=== PATIENT | male | born 1975 | race American Indian/Alaskan Native ===

== ENCOUNTER 2017-02-22 11:52 | Emergency (ER) | payer BC ==
[2017-02-22 12:15] VITALS: RESP 20
--- NOTE | 2017-02-22 12:59 | RAD ---
PROCEDURE: Left Knee Radiographs. HISTORY: Pain. COMPARISON: None. FINDINGS: BONES: No displaced fracture or suspicious lytic or blastic change identified. JOINTS: Joint space narrowing seen in all 3 compartments with articular cortical sclerosis and osteophyte development compatible with moderate to severe osteoarthritis. JOINT EFFUSION: Mild suprapatellar bursa effusion noted. OTHER FINDINGS: None. IMPRESSION: Tricompartmental osteoarthritis. No acute fracture dislocation. Mild suprapatellar bursa effusion.
--- NOTE | 2017-02-22 13:34 | C.PDOC ---
History Of Present Illness 41 y/o male, with PMHx of HTN and morbid obesity, presents to ED for evaluation of gradual development of left knee pain over the last 3 months. Pt states that pain is localized, and is worse with ambulation and with standing. Pt states that pain is progressively getting worse over the last few weeks, and states he was not able to go to work due to the pain. Pt notes that his job requires him to stand and walk often. Otherwise, denies any trauma, fall, injury, skin changes, redness, deformity, sensory vascular deficits, extremity weakness/ numbness, fever, or other physical complaints at this time. Time Seen by Provider: 02/22/17 12:04 Chief Complaint (Nursing): Lower Extremity Problem/Injury History Per: Patient History/Exam Limitations: no limitations Onset/Duration Of Symptoms: Days Current Symptoms Are (Timing): Still Present Recent travel outside of the [place]: No Additional History Per: Patient Past Medical History Reviewed: Historical Data, Nursing Documentation, Vital Signs Vital Signs: Last Vital Signs Temp 98.4 F 02/22/17 14:09 Pulse 86 02/22/17 14:09 Resp 20 02/22/17 14:09 BP 162/92 H 02/22/17 14:09 Pulse Ox 98 02/22/17 14:09 - Medical History PMH: HTN Family History: States: No Known Family Hx - Social History Hx Alcohol Use: No Hx Substance Use: No - Immunization History Hx Tetanus Toxoid Vaccination: No Hx Influenza Vaccination: No Review Of Systems Except As Marked, All Systems Reviewed And Found Negative. Constitutional: Negative for: Fever, Chills Cardiovascular: Negative for: Chest Pain, Palpitations Respiratory: Negative for: Shortness of Breath Gastrointestinal: Negative for: Nausea, Vomiting, Abdominal Pain Musculoskeletal: Positive for: Leg Pain (left knee) Skin: Negative for: Rash, Bruising Neurological: Negative for: Weakness, Numbness, Headache, Dizziness Physical Exam - Physical Exam Appears: Non-toxic, No Acute Distress Skin: Normal Color, Warm, Dry, No Rash Extremity: Normal ROM (FROM of left knee joint), Tenderness (anterior aspect of left knee), No Calf Tenderness, Capillary Refill (<2 sec.), No Deformity, Swelling (non-specific swelling to left knee) Extremity: Bilateral: Normal Color And Temperature, Normal ROM Pulses: Left Dorsalis Pedis: Normal, Right Dorsalis Pedis: Normal Neurological/Psych: Oriented x3, Normal Speech, Normal Motor, Normal Sensation, Normal Reflexes ED Course And Treatment O2 Sat by Pulse Oximetry: 97 (on RA) Pulse Ox Interpretation: Normal - Other Rad Left knee X-Ray: Interpreted by Me, Viewed By Me Interpretation: (+) mod DJD, no acute fx or dislocation - CT Scan/US Dupples US LLE Other Rad Studies (CT/US): Radiology Report Reviewed CT/US Interpretation: (-) DVT Progress Note: Left knee x-ray, venous duplex scan of left lower extremity ordered and reviewed. Pt was given Tramadol, and Prednisone. On re-eval, pt is afebrile, hemodynamicaly stable. Non-toxic. Ambulatory in ED with stable gait. LLE: exam c/w knee arthralgia. FAROM, no neurovascular deficits. no skin changes, no evidence of septic joint. Xray review and appears noraml. US of LLE (-) DVT. NOted HTN on triage, pt denies associated sx. Pt advised to F/u with PMD, ortho un 2-3 days for re-eval. return to ED if any worsening or new changes. Disposition Counseled Patient/Family Regarding: Diagnosis, Need For Followup, Rx Given - Disposition Referrals: [facility] [Outside] [facility] [place] [Outside] Disposition: HOME/ ROUTINE Disposition Time: 13:32 Condition: STABLE Additional Instructions: RICE-rest, ice, compression with knee brace or bro wrap, elevation Take medication as prescribed Follow up with PMD, Orthopedist in 2-3 days for re-evaluation. Return to ED if any worsening or new changes. Prescriptions: Hydrochlorothiazide [Microzide] 12.5 mg PO DAILY #10 cap Prednisone [Deltasone] 20 mg PO DAILY #3 tablet traMADol [Ultram] 50 mg PO TID #7 tab Instructions: Osteoarthritis (ED), Knee Pain (ED), Hypertension (ED) Forms: [facility] (Swedish), Work Excuse - Clinical Impression Clinical Impression: Arthralgia of knee, Hypertension - PA / [employer] / Resident Statement MD/DO has reviewed & agrees with the documentation as recorded. - Scribe Statement The provider has reviewed the documentation as recorded by the Jose Eibac Dong All medical record entries made by the Scribe were at my direction and personally dictated by me. I have reviewed the chart and agree that the record accurately reflects my personal performance of the history, physical exam, medical decision making, and the department course for this patient. I have also personally directed, reviewed, and agree with the discharge instructions and disposition.
[2017-02-22 14:10] VITALS: BP 162/92; PULSE 86; TEMP 98.4
[2017-02-23 08:51] VITALS: O2SAT 97
--- NOTE | 2017-02-23 15:23 | VASCLAB ---
PROCEDURE: Left Lower Extremity Venous Duplex Exam. HISTORY: leg pain PRIORS: None. TECHNIQUE: Left common femoral, femoral, popliteal and posterior tibial, peroneal and great saphenous veins were evaluated. Flow was assessed with color Doppler, compressibility, assessment of phasic flow and augmentation response. Report prepared by SILKE Zuluaga, RVT FINDINGS: LEFT: 1. Common Femoral Vein: 1.1. Compressibility - Fully compressible: Thrombus - None : Flow - Phasic: Augmentation -Normal: Reflux - None. 2. Femoral Vein: 2.1. Compressibility - Fully compressible: Thrombus - None: Flow - Phasic: Augmentation -Normal: Reflux - None. 3. Popliteal Vein: 3.1. Compressibility - Fully compressible: Thrombus - None: Flow - Phasic: Augmentation -Normal: Reflux - None. 4. Posterior Tibial Vein: 4.1. Compressibility - Fully compressible: Thrombus - None: Flow - Phasic: Augmentation -Normal: Reflux - None. 5. Peroneal Vein: 5.1. Compressibility - Fully compressible: Thrombus - None: Flow - Phasic: Augmentation -Normal: Reflux - None. 6. Great Saphenous Vein: 6.1. Compressibility - Fully compressible: Thrombus - None: Flow - Phasic: Augmentation - Normal: Reflux - None. OTHER FINDINGS: IMPRESSION: No evidence of deep or superficial vein thrombosis of the left lower extremity with excellent venous flow. Normal valve function noted of the left side. Normal venous flow noted in the right common femoral vein.
== END 2017-02-22 14:11 | disposition home or self-care (01) ==
LOC: C.ER 11:52
DX: M25.562 Pain in left knee (principal); I10 Essential (primary) hypertension